=== PATIENT | female | born 1980 | race African-American/Black ===

== ENCOUNTER 2017-02-14 12:07 | Emergency (ER) | payer SELFPAY ==
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
[2017-02-14 12:59] LABS: URINE SOURCE CLEAN CATCH
[2017-02-14 13:01] LABS: URINE APPEARANCE CLEAR; URINE BILIRUBIN NEG (NEG); URINE BLOOD NEG (NEG); URINE COLOR YELLOW; URINE GLUCOSE NEG (NORM); URINE KETONE NEG (NEG); URINE LEUKOCYTE ESTERASE TRACE (NEG); URINE NITRATE NEG (NEG); URINE PH 6.5 (5-8); URINE PROTEIN 2+ (NEG); URINE SPECIFIC GRAVITY 1.015 (1.003-1.035); URINE UROBILINOGEN 0.2 MG/DL (NORM)
[2017-02-14 13:02] LABS: MICRO INDICATED? YES
[2017-02-14 13:13] LABS: URINE RBC 0-2 /[HPF] (0-2)
[2017-02-14 13:14] LABS: CULTURE INDICATED? NO; URINE BACTERIA NEG (NEG); URINE WBC 0-2 /[HPF] (0-5)
[2017-02-14 13:25] LABS: ALBUMIN SERUM 3.8 g/dL (3.5-5.0); BILIRUBIN, DIRECT 0.1 mg/dL (0.0-0.2); BILIRUBIN,INDIRECT 0.3 mg/dL (0.0-0.9); BILIRUBIN,TOTAL 0.4 mg/dL (0.2-2.0); BUN/CREATININE RATIO 14.54; CREATININE SERUM 1.1 mg/dL (0.6-1.4); GLOM FILT RATE Estimated 75.9 mL/min (>60); POTASSIUM 4.1 mmol/L (3.5-5.1)
== END 2017-02-14 14:58 | disposition home or self-care (01) ==
LOC: SED 12:07
PROVIDERS: Nurse Practitioner
DX: S06.0X9A Concussion with loss of consciousness of unspecified duration, initial encounter (principal); S50.12XA Contusion of left forearm, initial encounter; S50.11XA Contusion of right forearm, initial encounter; S60.222A Contusion of left hand, initial encounter; S00.81XA Abrasion of other part of head, initial encounter; Y08.89XA Assault by other specified means, initial encounter; Y92.009 Unspecified place in unspecified non-institutional (private) residence as the place of occurrence of the external cause
CPT/HCPCS: 36415; 70450; 70486; 73090; 73130; 74177; 80048; 80076; 81003; 83690; 84703; 96360; 99284; Q9967